=== PATIENT | female | born 1950 | race Caucasian/White ===

== ENCOUNTER 2017-01-23 13:05 | Inpatient (IN) | payer MEDICARE, OTHER ==
[~2017-01-23] VITALS: Ht 162.6 cm; Wt 75.4 kg
[2017-01-23] MEDS ORDERED: SODIUM CHLORIDE 0.9% 1,000 ML IV ONE (13:45)
[2017-01-23] MEDS ORDERED: QUET25TA PO (14:11)
[2017-01-23 14:29] LABS: BASOPHILS # (AUTO) 0.05 K/uL (0.00-0.20); BASOPHILS % (AUTO) 1.2 % (0.0-2.0); EOSINOPHILS # (AUTO) 0.07 K/uL (0.00-0.70); EOSINOPHILS % (AUTO) 1.78 % (1.0-6.0); HEMATOCRIT 40.3 % (36-46); HEMOGLOBIN 13.2 g/dL (12.0-16.0); LYMPHOCYTES # (AUTO) 1.1 K/uL (1.0-4.8); LYMPHOCYTES % (AUTO) 27.7 % (22.0-44.0); MEAN CORPUSCULAR HEMOGLOBIN 27.6 pg (26.0-34.0); MEAN CORPUSCULAR HGB CONC 32.8 G/dL (31.0-37.0); MEAN CORPUSCULAR VOLUME 84 fL (80-100); MONOCYTES # (AUTO) 0.4 K/uL (0.1-1.0); MONOCYTES % (AUTO) 9.2 % (2.0-9.0); NEUTROPHILS # (AUTO) 2.4 K/uL (1.8-7.7); NEUTROPHILS % (AUTO) 60.1 % (40.0-70.0); PLATELET COUNT (AUTO) 199 K/uL (150-450); RED BLOOD CELL COUNT(AUTO) 4.79 MIL/uL (4.00-5.20); RED CELL DISTRIBUTION WIDTH 15.8 % (11.5-14.5)
[2017-01-23 14:31] LABS: ANION GAP 8 mmol/L (8-16); CALCIUM, TOTAL 9.5 mg/dL (8.8-10.5); CARBON DIOXIDE 27 mmol/L (22-29); CHLORIDE 105 mmol/L (98-107); CREATININE 1.04 mg/dL (0.60-1.30); GLOMERULAR FILTR. RATE CALC 53 mL/min (>60); POTASSIUM 4.4 mmol/L (3.5-5.1); SODIUM SERUM 140 mmol/L (136-145); UREA NITROGEN, BLOOD 14 mg/dL (7-18)
[2017-01-23 14:37] LABS: ALANINE AMINOTRANSFERASE 58 U/L (12-78); ALBUMIN 3.9 g/dL (3.4-5.0); ASPARTATE AMINOTRANSFERASE 44 U/L (15-37); BILIRUBIN,TOTAL 0.3 mg/dL (0.1-1.0); TOTAL PROTEIN, SERUM 7.9 g/dL (6.4-8.2)
[2017-01-23 14:58] LABS: B-TYPE NATRIURETIC PEPTIDE 37 pg/mL (0-100)
[2017-01-23] MEDS ORDERED: MAGNESIUM SULFATE 2 GM, MVI, ADULT NO.1 WITH VIT K 10 ML, THIAMINE HCL 100 MG, FOLIC AC... IV ONE ×5 (15:30)
[2017-01-23] MEDS ORDERED: ZOLPIDEM TARTRATE 5 MG TABLET PO PRN (15:30)
[2017-01-23] MEDS ORDERED: MAGNESIUM HYDROXIDE SUSPENSION 30 ML UDCUP PO PRN (15:30)
[2017-01-23] MEDS ORDERED: BISACODYL 10 MG RECTAL RECTAL SUPPOSITORY PR PRN (15:30)
[2017-01-23] MEDS ORDERED: ONDANSETRON HCL 4 MG/2 ML VIAL IVP PRN (15:30)
[2017-01-23 16:04] LABS: APPEARANCE,URINE CLOUDY (CLEAR); GLUCOSE, URINE (UA) NEGATIVE (NEGATIVE); KETONES,URINE NEGATIVE (NEGATIVE); LEUKOCYTE ESTERASE ,URINE LARGE (NEGATIVE); OCCULT BLOOD,URINE SMALL (NEGATIVE); PROTEIN,URINE NEGATIVE (NEGATIVE)
[2017-01-23 16:16] LABS: ADD UA MICROSCOPIC YES; SQUAMOUS EPITHELIAL CELL,UR Many /LPF (None Seen); WBC,URINE 26-50 /HPF (0-5)
[2017-01-23 16:47] VITALS: BP 127/80
[2017-01-23] MEDS: HEPARIN SODIUM,PORCINE 5,000 UNITS/ML VIAL SQ SCH ×2 (18:17→23:29)
[2017-01-23] MEDS: DOCUSATE SODIUM 100 MG CAPSULE PO SCH (19:50)
[2017-01-23 20:16] VITALS: BP 120/76
[2017-01-24 00:10] VITALS: BP 144/86
[2017-01-24 05:05] VITALS: BP 134/79
[2017-01-24] MEDS: PANTOPRAZOLE SODIUM 40 MG DR TABLET PO SCH (07:53)
[2017-01-24] MEDS: DOCUSATE SODIUM 100 MG CAPSULE PO SCH ×2 (07:53→20:32)
[2017-01-24] MEDS: HYDROCODONE/ACETAMINOPHEN 5-325 MG TABLET PO PRN ×2 (07:54→15:19)
[2017-01-24] MEDS: HEPARIN SODIUM,PORCINE 5,000 UNITS/ML VIAL SQ SCH ×3 (07:54→23:46)
[2017-01-24 08:09] VITALS: BP 136/85
[2017-01-24 11:38] VITALS: BP 122/73
[2017-01-24] MEDS ORDERED: SODIUM CHLORIDE 0.9% 500 ML IV ONE (14:30)
[2017-01-24] MEDS: CefTRIAXone 1 GM/DEXTROSE 50 ML IV SCH (15:15)
[2017-01-24 15:42] VITALS: BP 124/78
[2017-01-24] MEDS: ACETAMINOPHEN 325 MG TABLET PO PRN (20:32)
[2017-01-24 20:51] VITALS: BP 125/83
[2017-01-25] VITALS (7 sets, daily range): BP systolic 107–137; BP diastolic 57–82
[2017-01-25] MEDS: HEPARIN SODIUM,PORCINE 5,000 UNITS/ML VIAL SQ SCH ×3 (08:08→23:21)
[2017-01-25] MEDS: PANTOPRAZOLE SODIUM 40 MG DR TABLET PO SCH (08:09)
[2017-01-25] MEDS: DOCUSATE SODIUM 100 MG CAPSULE PO SCH ×2 (08:09→19:46)
[2017-01-25] MEDS: HYDROCODONE/ACETAMINOPHEN 5-325 MG TABLET PO PRN ×3 (08:16→19:46)
[2017-01-25] MEDS ORDERED: 0.9% SODIUM CHLORIDE 10 ML SYRINGE IVP PRN (14:15)
[2017-01-25] MEDS: CefTRIAXone 1 GM/DEXTROSE 50 ML IV SCH (15:54)
[2017-01-25] MEDS: QUEtiapine FUMARATE 25 MG TABLET PO SCH (19:46)
[2017-01-26] MEDS: HYDROCODONE/ACETAMINOPHEN 5-325 MG TABLET PO PRN ×4 (00:27→23:24)
[2017-01-26 04:00] VITALS: BP 117/74
[2017-01-26 08:01] VITALS: BP 136/72
[2017-01-26] MEDS: PANTOPRAZOLE SODIUM 40 MG DR TABLET PO SCH (08:08)
[2017-01-26] MEDS: HEPARIN SODIUM,PORCINE 5,000 UNITS/ML VIAL SQ SCH ×3 (08:09→23:25)
[2017-01-26] MEDS: DOCUSATE SODIUM 100 MG CAPSULE PO SCH ×2 (08:09→20:23)
[2017-01-26] MEDS: ACETAMINOPHEN 325 MG TABLET PO PRN (08:18)
[2017-01-26 11:50] VITALS: BP 143/81
[2017-01-26] MEDS: MORPHINE SULFATE 2 MG/ML SYRINGE IVP PRN ×2 (12:43→17:49)
[2017-01-26] MEDS: CefTRIAXone 1 GM/DEXTROSE 50 ML IV SCH (15:09)
[2017-01-26] MEDS ORDERED: SODIUM CHLORIDE 0.9% 500 ML IV ONE (15:11)
[2017-01-26 15:43] VITALS: BP 116/81
[2017-01-26 19:09] VITALS: BP 109/59
[2017-01-26] MEDS: QUEtiapine FUMARATE 25 MG TABLET PO SCH (20:23)
[2017-01-26 23:33] VITALS: BP 141/86
[2017-01-27 03:26] VITALS: BP 130/81
[2017-01-27] MEDS: HYDROCODONE/ACETAMINOPHEN 5-325 MG TABLET PO PRN (06:05)
[2017-01-27 07:16] VITALS: BP 100/64
[2017-01-27] MEDS: PANTOPRAZOLE SODIUM 40 MG DR TABLET PO SCH (07:45)
[2017-01-27] MEDS: HEPARIN SODIUM,PORCINE 5,000 UNITS/ML VIAL SQ SCH ×2 (07:46→15:29)
[2017-01-27] MEDS: DOCUSATE SODIUM 100 MG CAPSULE PO SCH (07:46)
[2017-01-27] MEDS ORDERED: QUEtiapine FUMARATE 25 MG TABLET PO SCH (09:00)
[2017-01-27 12:18] VITALS: BP 124/75
[2017-01-27] MEDS: ACETAMINOPHEN 325 MG TABLET PO PRN (14:22)
[2017-01-27] MEDS: CefTRIAXone 1 GM/DEXTROSE 50 ML IV SCH (15:19)
[2017-01-27 15:30] VITALS: BP 129/66
== END 2017-01-27 18:00 | DRG 871 ==
LOC: EMS 13:07 → 6N 15:59 → 4E 01-27 09:30
PROVIDERS: ADMIT Internal Medicine; ATTEND Internal Medicine
DX: A41.50 Gram-negative sepsis, unspecified (principal); G93.41 Metabolic encephalopathy; N39.0 Urinary tract infection, site not specified; F03.90 Unspecified dementia, unspecified severity, without behavioral disturbance, psychotic disturbance, mood disturbance, and anxiety; F20.9 Schizophrenia, unspecified; B96.1 Klebsiella pneumoniae [K. pneumoniae] as the cause of diseases classified elsewhere; Z91.030 Bee allergy status; Z79.899 Other long term (current) drug therapy
CPT/HCPCS: 70450; 87086; 93005; 93306; 93880; 96361; 96365; 97161; 99285; G0480; J0696; J1644; J2270; J3411; J3475; J3490; J7030; J7040